=== PATIENT | male | born 1940 | race Caucasian/White ===

== ENCOUNTER 2017-05-09 05:48 | Day surgery (SDC) | payer BC ==
[2017-05-05 21:56] LABS: HEMATOCRIT 42.2 % (40.0-51.0); HEMOGLOBIN 14.3 g/dL (13.6-17.8)
[2017-05-05 22:20] LABS: A/G RATIO 1.5 (0.7-1.9); ALBUMIN 3.9 G/DL (3.5-5.0); ALKALINE PHOSPHATASE 73 U/L (45-117); BUN (BLOOD UREA NITROGEN) 12 MG/DL (6-23); CHLORIDE, SERUM 104 MMOL/L (96-112); CO2 (CARBON DIOXIDE) 29 MMOL/L (24-34); CREATININE 0.96 MG/DL (0.70-1.30); GFR AFRICAN AMERICAN 89 ML/MIN (>=60); GFR NON AFRICAN AMERICAN 76 ML/MIN (>=60); GLOBULIN 2.6 G/DL (2.5-4.1); GLUCOSE, SERUM 70 MG/DL (60-99); POTASSIUM, SERUM 4.1 MMOL/L (3.5-5.3); SGOT(AST) 16 U/L (5-40); SGPT(ALT) 27 U/L (5-65); SODIUM, SERUM 139 MMOL/L (135-148); TOTAL BILIRUBIN 0.5 MG/DL (0-1.2)
[2017-05-05 22:21] LABS: CALCIUM, SERUM 8.6 MG/DL (8.5-10.4); TOTAL PROTEIN 6.5 G/DL (6.0-8.5)
--- NOTE | ~2017-05-09 | OP ---
Record Of Operation [facility] [address] [place]. [address] NAME: GENESIS LOWE : 40 STATUS : [facility]#: [id number] AGE: 76 ADM/REG DATE : 05/09/17 MR#: [id number] REPORT SERV DATE: 05/09/17 DICTATED BY: AUGUSTO HUYNH DATE: 05/09/17 REPORT STATUS : Draft TRANSCRIBED BY: MODL DATE: 05/09/17 DATE OF PROCEDURE: 05/09/2017 PREOPERATIVE DIAGNOSIS: Bilateral inguinal hernia. POSTOPERATIVE DIAGNOSIS: Bilateral inguinal hernia. PROCEDURE: Laparoscopic reduction and mesh patch repair of bilateral inguinal hernia. SURGEON: Augusto Huynh M.D. DESCRIPTION OF OPERATIVE PROCEDURE: The patient was brought to the operating suite, placed in supine position, underwent satisfactory general endotracheal anesthesia without incident. The skin of the abdomen was scrubbed, prepped, and draped in usual sterile fashion. 0.5% Marcaine with epinephrine was utilized as supplemental local anesthesia. Initial, an infraumbilical incision was performed dissecting through skin and subcutaneous tissue through the umbilical fascia. Inferolateral retraction of the left exposed the medial aspect of the left anterior rectus sheath. It was incised longitudinally and the medial aspect of the left rectus muscle was retracted exposing the left posterior rectus sheath. A preperitoneal dissection balloon was inserted posterior to the left rectus sheath at the level of pubic tubercle. It was insufflated under direct camera visualization creating a preperitoneal dissection plane bilaterally. This balloon was then replaced with a structural balloon and CO2 was insufflated into the preperitoneal space for pressures of 15 mmHg throughout the case. After adequate insufflation pressures were obtained, the two additional 5 mm trocars were placed in the infraumbilical midline under direct visualization. Completion of preperitoneal dissection was performed bilaterally revealing on the left a large incarcerated direct defect consistent with preperitoneal fat and on the right an indirect defect, the inferior epigastric vessels, cord structures, and Hesselbach triangle were skeletonized bilaterally. On the right, an opening in the peritoneum was closed with multiple applications of the Weck 5 mm polymer clip system. Two separately placed pieces of Bard 3DMax polypropylene mesh size large were placed in local anesthesia, rolled up, and then placed in the preperitoneal space and rolled over the Hesselbach's triangle, the inferior epigastric vessels, and the internal ring. The mesh was plicated in position at multiple locations covering these areas and then hemostasis was assured. The preperitoneal space was allowed to collapse and CO2 was milked from the preperitoneal space. The anterior rectus sheath was closed with [id number] suture of 0 Vicryl. Subcutaneous tissue closed at all sites with interrupted 4-0 Vicryl, running subcuticular stitch 4-0 Vicryl for the skin. Dermabond skin adhesive placed. The patient tolerated the procedure well, was returned to PACU in stable condition. At Record Of Operation [place] [id number] [facility] [place]. [address] NAME: GENESIS LOWE : 40 STATUS : [facility]#: [id number] AGE: 76 ADM/REG DATE : 05/09/17 MR#: [id number] REPORT SERV DATE: 05/09/17 DICTATED BY: AUGUSTO HUYNH DATE: 05/09/17 REPORT STATUS : Draft TRANSCRIBED BY: DAVIDL DATE: 05/09/17 termination procedure, sponge, needle, lap, instrument counts were correct x3. Estimated blood loss was less than 15 mL. DIYA/ENRIQUE Augusto Huyhn M.D. / [id number] CC: Pablo Johnson M.D.
[~2017-05-09 05:48] MED LIST: ADVIL PO; ATEN25 PO; ATV1 PO; CARDU4 PO; MOBIC15 MG PO; SULFAMETHOXAZOLE-TRI PO; [UNRECOGNIZED DRUG - OTHER] PO
== END 2017-05-09 17:53 | disposition home or self-care (01) ==
LOC: SDC 05:48
PROVIDERS: Specialist
PROC: 0YUA4JZ Supplement Bilateral Inguinal Region with Synthetic Substitute, Percutaneous Endoscopic Approach (ICD-10-PCS; principal; 2017-05-09 07:45)
DX: K40.20 Bilateral inguinal hernia, without obstruction or gangrene, not specified as recurrent (principal); K21.9 Gastro-esophageal reflux disease without esophagitis; K25.9 Gastric ulcer, unspecified as acute or chronic, without hemorrhage or perforation; I10 Essential (primary) hypertension; N20.0 Calculus of kidney; N40.0 Benign prostatic hyperplasia without lower urinary tract symptoms; M54.9 Dorsalgia, unspecified; M19.90 Unspecified osteoarthritis, unspecified site; H91.90 Unspecified hearing loss, unspecified ear; Z87.440 Personal history of urinary (tract) infections; Z98.890 Other specified postprocedural states; Z90.49 Acquired absence of other specified parts of digestive tract; Z90.89 Acquired absence of other organs; Z87.891 Personal history of nicotine dependence; Z79.1 Long term (current) use of non-steroidal anti-inflammatories (NSAID); Z79.2 Long term (current) use of antibiotics; Z79.899 Other long term (current) drug therapy; Z87.19 Personal history of other diseases of the digestive system
CPT/HCPCS: 80053; 85014; 85018; 93005; A9270-GY; C1726; C1727; C1781; J0690; J2270; J2405; J2550; J2710; J3010